=== PATIENT | female | born 1945 | race Caucasian/White ===

== ENCOUNTER 2016-08-25 10:02 | Emergency (ER) | payer OTHER ==
[2016-08-25 10:52] VITALS: BP 151/71; PULSE 70; RESP 16; TEMP 97.7; O2SAT 93
--- NOTE | 2016-08-25 10:54 | UCPHY ---
H & P Patient Type: New Time Seen by Provider: 08/25/16 10:45 HPI/ROS: Chief Complaint: Cough HPI: 71-year-old patient presenting with 1 week of cough which has been productive of just a scant amount of sputum. No subjective fevers or chills. She was seen at the clinic several days ago was given an inhaler and antitussives but is having persistent cough is unable to sleep. Has not been using a spacer with your inhaler. No fevers or chills. Some mild shortness of breath after episodes of coughing. No chest pain. ROS: 10 point Review of Systems is negative except as noted in the HPI. PMH: Atrial fibrillation Medications: Eliquis, metoprolol Allergies: Penicillin and sulfa Social History: No smoking, no alcohol, no recreational drug use Family History: non-contributory Physical Exam: Gen: Awake, Alert, No Distress HEENT: Nose: no rhinorrhea Eyes: PERRLA, EOMI Mouth: Moist mucosa Neck: Supple, no JVD Chest: nontender, she has some fine crackles at the left base Heart: S1, S2 normal, no murmur Abd: Soft, non-tender, no guarding Back: no CVA tenderness, no midline tenderness Ext: no edema, non-tender Skin: no rash Neuro: CN II-XII intact, Sensation grossly intact, Strength 5/5 in bilateral upper and lower extremities - Family History Significant Family History: No pertinent family hx Constitutional: Initial Vital Signs Temperature (C) 36.5 C 08/25/16 10:47 Heart Rate 70 08/25/16 10:47 Respiratory Rate 16 08/25/16 10:47 Blood Pressure 151/71 H 08/25/16 10:47 O2 Sat (%) 93 08/25/16 10:47 O2 Delivery Mode Room Air Allergies/Adverse Reactions: Penicillins Allergy (Verified 08/25/16 10:45) Sulfa (Sulfonamide Antibiotics) Allergy (Verified 08/25/16 10:45) Home Medications: Medication Instructions Recorded AZITHROMYCIN [Z-PACK] 250 mg PO DAILY #6 tab 08/25/16 Apixaban [Eliquis] 08/25/16 Aspirin 08/25/16 Doxylamine Succinate [Sleep Aid] 08/25/16 Metoprolol Tartrate 08/25/16 SIMVASTATIN 08/25/16 Departure - Departure Disposition: Home, Routine, Self-Care Clinical Impression: Pneumonia Condition: Good Instructions: Pneumonia (ED) Additional Instructions: You may use your inhaler 2 puffs every 4 hours as needed for cough. Always use a spacer when using inhaler. Please take your full course of antibiotics. Follow up with her primary care physician when he returns home next week. Return to the emergency department for increasing cough, shortness of breath, fevers, chills, or any other concerns. Referrals: RONAN DIEGO MD [Other] - As per Instructions Prescriptions: AZITHROMYCIN [Z-PACK] 250 mg PO DAILY #6 tab - PQRS PQRS Measurement: 134: Depression screening and followup, PRIME -PHQ2 (12 years and older) Over the last 2 weeks, how often have you been bothered by any of the following problems? 1. Feeling down, depressed, or hopeless? 2. Little interest or pleasure in doing things? Patient answered no to both 1 and 2 130: Documentation of medications. Reviewed all patient medications, doses, route and frequency. 226: Do you smoke? No. 47: 65 and older: Advanced care planning. Patient designates surrogate decision maker as spouse . 51: 18 years old and older with diagnosis of COPD, spirometry performance. Patient has no history of COPD 52: 18 years old and older with COPD and symptoms of COPD or FEV1<60% predicted prescribed a B Agonist. Spirometry not performed; equipment not available.
== END 2016-08-25 11:18 | disposition home or self-care (01) ==
LOC: CED 10:02
DX: J18.9 Pneumonia, unspecified organism (principal); I48.91 Unspecified atrial fibrillation; Z88.0 Allergy status to penicillin; Z88.2 Allergy status to sulfonamides
CPT/HCPCS: 99204-PO; G0463-PO